=== PATIENT | male | born 1985 | race Caucasian/White ===

== ENCOUNTER 2023-05-20 08:32 | Emergency (ER) | payer BC, SELFPAY ==
[2023-05-20 08:36] VITALS: BP 123/73; PULSE 83; RESP 18; TEMP 37.1; O2SAT 100
--- NOTE | 2023-05-20 08:53 | ED.GENADUL_ITS ---
Discharge Plan Disposition Patient Disposition: Home Condition: Good Discharge Details Clinical Impression: COVID-19 Primary Care Provider: None,None ED Provider: Prachi Acuña Home Meds and New Rx's Prescriptions: New Paxlovid 300 mg (150 mg x 2)-100 mg tablets,dose pack See Rx Instructions .ROUTE .COMPLEX Qty: 1 0RF Rx Instructions: take TWO 150 mg tablets of nirmatrelvir with ONE 100 mg tablet of ritonavir twice daily for 5 days Discharge Instructions Instructions: Viral Syndrome (ED) Additional Instructions: You can take tylenol and ibuprofen over the counter as needed for fever and body aches. You can alternate every 3 hours for example tylenol at noon, ibuprofen at 3, tylenol at 6, ibuprofen at 9, and so on. Paxlovid has been prescribed due to your history of asthma; follow the directions on the package. Return to the emergency department for new or worsening symptoms including difficulty breathing, chest pain, or if you have any other concerns. Medical Decision Making 38yo with hx of cough-variant asthma presenting for fever and chills. COVID + yesterday, two days of URI symtpoms. Tylenol at home this morning at 0330. Vital signs reassuring, afebrile here, not tachycardiac. Non-toxic appearing on exam with no respiratory distress. Not septic. No symptoms to suggest pulmonary embolism. With two days of symptoms, known viral source, afebrile here with no respiratory distress would not pursue labs/imaging/CXR at this time. Symptomatic treatment here with tylenol, toradol. No history of kidney or liver disease. Given asthma, prescribed Paxlovid and advised symptomatic treatment at home. Discharged home; discharge instructions including return precautions were reviewed with patient who verbalized understanding. All questions were answered and they are in full agreement with the plan. HPI General Mode of arrival: ambulatory . Date/Time Provider Initiated Documentation: 05/20/23 08:40 . Limitations to Documentation: no limitations . Information obtained by: patient . 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 COVID + yesterday, two days of URI symptoms (cough, rhinnorhea). Mild nausea, no vomiting or diarrhea. No chest pain, difficulty breathing, LE edema, or other concerns. Tylenol at home this morning at 0330. Has inhalers at home but has not needed them. He is otherwise in his usual state of health with no rash, chest pain, pleuritic pain, numbness, focal weakness, or other concerns. Related Data Home Medications Medication Instructions Recorded Confirmed nirmatrelvir 300 mg (150 mg See Rx Instructions PO .COMPLEX #1 05/20/23 x2)-ritonavir 100 mg tablet,dose dose pk pack (Paxlovid) Previous Rx's Medication Instructions Recorded nirmatrelvir 300 mg (150 mg See Rx Instructions PO .COMPLEX #1 05/20/23 x2)-ritonavir 100 mg tablet,dose dose pk pack (Paxlovid) Allergies Allergy/AdvReac Type Severity Reaction Status Date / Time No Known Allergies Allergy Unverified 05/20/23 08:40 General Stated Complaint: RespSymp ANALI: 4 Review of Systems Narrative: see HPI PFSH All Active Problems (Updated 05/20/23 @ 09:02 by Prachi Acuña MD) COVID-19 (Acute) Social History Smoking/Tobacco Use Status: Never Smoking risk assessment performed?: Yes Alcohol Intake: current Drug use: Occasionally Substance use type: marijuana Do you feel safe at home: Yes Do you feel safe in your relationship?: Yes Exam Narrative Exam Narrative: General: Alert, well appearing, well nourished, in no acute distress. Head: Normocephalic, atraumatic Neck: Trachea midline, Neck supple. ENT: MMM. No oropharygeal lesions or exudate. TM's clear. Cardiac: RRR, no murmurs appreciated Resp: No respiratory distress. CTAB. Abd: Soft, non-distended, nontender Extremities: No deformities. No peripheral edema. Neurologic: GCS 15. Moves all extremities freely against gravity Course Vital Signs Vital signs: Vital Signs Temperature 37.1 C 05/20/23 08:36 Pulse 83 05/20/23 08:36 Respiratory Rate 18 05/20/23 08:36 Blood Pressure 123/73 05/20/23 08:36 Pulse Oximetry 100 05/20/23 08:36 Temperature 37.1 C 05/20/23 08:36 Temperature Source Oral 05/20/23 08:36 Pulse 83 05/20/23 08:36 Respiratory Rate 18 05/20/23 08:36 Respiratory Effort Normal 05/20/23 08:39 Blood Pressure 123/73 05/20/23 08:36 Blood Pressure Position Sitting 05/20/23 08:36 Pulse Oximetry 100 05/20/23 08:36 Oxygen Delivery Method Room Air 05/20/23 08:36 Oxygen Flow Rate 0 05/20/23 08:36 Pain Level 4 05/20/23 08:36
[2023-05-20] MEDS: Ketorolac 15 MG/ML VIAL IM (09:06)
[2023-05-20] MEDS: Acetaminophen 325 MG TAB 650 MG PO (09:06)
== END 2023-05-20 09:06 | disposition home or self-care (01) ==
PROVIDERS: Emergency Provider Student in an Organized Health Care Education/Training Program
DX: U07.1 COVID-19 (principal)
CPT/HCPCS: 96372; 99283; 99282; J1885

== ENCOUNTER 2023-06-21 17:25 | Outpatient (REF) | payer BC, SELFPAY ==
[2023-06-21 23:41] LABS: MRSA PCR Negative (Negative)
== END 2023-06-21 17:26 | disposition home or self-care (01) ==
LOC: LBN 17:25
PROVIDERS: Visit Provider Physician Assistant
DX: J34.89 Other specified disorders of nose and nasal sinuses (principal)
CPT/HCPCS: 87641

== ENCOUNTER 2023-11-23 11:58 | Emergency (ER) | payer BC, SELFPAY ==
[2023-11-23 12:03] VITALS: BP 109/74; PULSE 73; RESP 18; O2SAT 100
[2023-11-23 12:08] VITALS: TEMP 36.5
[2023-11-23 12:52] LABS: Bilirubin Negative (Negative); Blood Negative (Negative); Clarity Clear (Clear); Glucose Negative (Negative); Ketones Trace mg/dL (Negative); Leukocyte Esterase Negative (Negative); Nitrite Negative (Negative); Specific Gravity 1.025 (1.005-1.025); Urobilinogen 0.2 mg/dL (Up to 0.2); pH 5.5 (5-8)
[2023-11-23 13:27] LABS: Abs Immature Grans 0.02 10^3/uL (0.0-0.06); Absolute Basophil Count 0.03 10^3/uL (0.0-0.2); Absolute Eosinophil Count 0.01 10^3/uL (0.0-0.7); Absolute Lymphocyte Count 1.12 10^3/uL (1.2-3.4); Absolute Monocyte Count 0.45 10^3/uL (0.1-0.8); Absolute Neutrophil Count 8.34 10^3/uL (1.2-6.7); Basophils % 0.3; Eosinophils % 0.1; HCT 45.6 % (40.0-50.0); HGB 15.1 g/dL (13.5-17.5); Immature Grans % 0.2; Lymphocytes % 11.2; MCH 30.2 pg (27.0-33.0); MCHC 33.1 % (32.0-36.0); MCV 91 fL (80-95); MPV 9.4 fL (8.0-11.0); Monocytes % 4.5; Neutrophils % 83.7; Platelet Count 373 10^3/uL (130-400); RDW 12.5 % (11.8-14.1); RDW-SD 41.4 fL; WBC 9.97 10^3/uL (4.4-10.8)
--- NOTE | 2023-11-23 13:54 | ED.GENADUL_ITS ---
Discharge Plan Disposition Patient Disposition: Home Condition: Stable Discharge Details Clinical Impression: Back pain Primary Care Provider: Unknown,Unknown ED Provider: You Shafer Home Meds and New Rx's Prescriptions: Continued methylprednisolone [Medrol (He)] 4 mg tablets,dose pack See Rx Instructions PO PER PKG DIR Qty: 21 0RF Rx Instructions: PO PER PKG DIR cyclobenzaprine 10 mg tablet 10 mg PO HS PRN (Reason: muscle spasm) Qty: 7 0RF Discharge Instructions Instructions: Back Pain (ED) Additional Instructions: Your urinalysis and laboratory values are reassuring. Your examination is most consistent with musculoskeletal pain. I do recommend that you continue taking your Medrol pack as well as your cyclobenzaprine as directed. I will add on ibuprofen, 800 mg every 8 hours for the next 5-7 days. As we discussed you may also use [id number] lidocaine patches. Gentle stretching as tolerated. Cool and/or warm compresses every 2 hours for 20 minutes. Please watch for new or worsening symptoms and return immediately to the ER. Otherwise I recommend contacting your primary care provider to discuss your ER visit, ongoing symptoms, and need for outpatient reevaluation. Discharge Data Discharge Date/Time-TO BE ENTERED AT DEPARTURE: 11/23/23 14:17 HPI General Mode of arrival: ambulatory . Date/Time Provider Initiated Documentation: 11/23/23 12:20 . Limitations to Documentation: no limitations . Information obtained by: patient . History of Present Illness 38 year old M presents to the emergency department with the chief complaint of Right hip and back pain, described as moderate, with intensity rated at 6. Quality is d escribed as aching, and is localized to the back, right and lower extremity. Patient reports no radiation. Patient started experiencing this day(s) (6) and it has been constant. Immobilization improves symptom(s), Movement worsens symptoms and Other factors that worsen symptoms (Standing upright, straight) . Patient notes denies chest pain, fever/chills, headaches and nausea/vomiting. Patient did receive the following treatments prior to arrival, NSAID (The first day) and other (Steroids, cyclobenzaprine) Related Data Home Medications Medication Instructions Recorded Confirmed cyclobenzaprine 10 mg tablet 10 mg PO HS PRN muscle spasm #7 11/22/23 11/23/23 tabs methylprednisolone 4 mg tablets in See Rx Instructions PO PER PKG DIR 11/22/23 11/23/23 a dose pack (Medrol (He)) #21 dose pk Previous Rx's Medication Instructions Recorded cyclobenzaprine 10 mg tablet 10 mg PO HS PRN muscle spasm #7 11/22/23 tabs methylprednisolone 4 mg tablets in See Rx Instructions PO PER PKG DIR 11/22/23 a dose pack (Medrol (He)) #21 dose pk Allergies Allergy/AdvReac Type Severity Reaction Status Date / Time Penicillins Allergy Hives Verified 11/23/23 12:07 General Stated Complaint: Nk/Back Pain ANALI: 3 Review of Systems Constitutional Constitutional: Denies fever(s) and Denies weakness Cardiovascular Cardiovascular: Denies chest pain and Denies dyspnea Respiratory Respiratory: Denies dyspnea Gastrointestinal Gastrointestinal: Denies abdominal pain, Denies melena, Denies hematochezia, Denies constipation, Denies diarrhea, Denies nausea and Denies vomiting Genitourinary Genitourinary: Denies hematuria and Denies dysuria Musculoskeletal Musculoskeletal: Reports back pain, Denies numbness and Denies tingling Integumentary/Breasts Skin/Breast: Denies rash Neurologic Neurologic: Denies numbness, Denies tingling and Denies weakness Exam Const General: cooperative, healthy appearing, comfortable and no acute distress Orientation: alert and awake [facility] Head: normal to inspection, normocephalic and atraumatic Mouth: moist mucous membranes Eyes Conjunctivae: conjunctivae normal Neck Neck: normal visual inspection, trachea midline and supple Resp Effort & Inspection: normal respiratory effort and able to speak in complete sentences Cardio Rate: regular rate Rhythm: regular rhythm GI Inspection: normal to inspection Palpation: soft, not firm, no guarding, not rigid and nontender Back/Spine/Pelvis Back: no CVA tenderness and back tenderness (Diffuse mild right lumbar) Thoracic/Lumbar Spine: No thoracic spinal tenderness, No lumbar spinal tenderness and straight leg raise positive (Right, left negative) Pelvis: no pain with anterior-posterior compression, no pain with lateral compression and sciatic notch tenderness on the right Skin General skin exam: no rashes or lesions noted Neuro General: patient alert, patient awake, moves all extremities and no focal motor deficits Cognition: normal cognition Speech: speech normal Gait: normal gait Motor: muscle tone normal throughout Sensory Exam: no sensory deficits noted Extrem General: normal to inspection, full ROM and capillary refill normal Other: Right hip exam: Visual inspection without erythema, ecchymosis, swelling, deformity. Patient able to actively flex their hip greater than 90 degrees with mild discomfort. Pt able to demonstrate smooth internal and external rotation. Mild discomfort with internal rotation, no discomfort with external rotation. While seated, able to hold leg in hip flexion against moderate resistance with mild discomfort. Mild pain over the greater trochanter to palpation. No discomfort over the IT band. Sensation is intact to light touch throughout. Straight leg raise positive for eliciting both back discomfort as well as anterior soft tissue discomfort. Denies deep joint discomfort. Psych Appearance: grossly normal Mental Status: mental status grossly normal Course Vital Signs Vital signs: Vital Signs Pulse 73 11/23/23 12:03 Respiratory Rate 18 11/23/23 12:03 Blood Pressure 109/74 11/23/23 12:03 Pulse Oximetry 100 11/23/23 12:03 Temperature 36.5 C 11/23/23 12:08 Temperature Source Oral 11/23/23 12:08 Pulse 73 11/23/23 12:03 Respiratory Rate 18 11/23/23 12:03 Respiratory Effort Normal 11/23/23 12:07 Blood Pressure 109/74 11/23/23 12:03 Blood Pressure Position Sitting 11/23/23 12:03 Pulse Oximetry 100 11/23/23 12:03 Oxygen Delivery Method Room Air 11/23/23 12:03 Oxygen Flow Rate 0 11/23/23 12:03 Pain Level 5 11/23/23 12:54 Lab/Test Results Lab/Test Results: Laboratory Tests Range/Units 11/23/23 11/23/23 12:45 13:17 WBC (4.4-10.8) 10^3/uL 9.97 RBC (4.36-5.78) 10^6/uL 5.00 Hgb (13.5-17.5) g/dL 15.1 Hct (40.0-50.0) % 45.6 MCV (80-95) fL 91 MCH (27.0-33.0) pg 30.2 MCHC (32.0-36.0) % 33.1 RDW (11.8-14.1) % 12.5 Plt Count (130-400) 10^3/uL 373 MPV (8.0-11.0) fL 9.4 Immature Gran % 0.2 Neutrophils % 83.7 Lymphocytes % 11.2 Monocytes % 4.5 Eosinophils % 0.1 Basophils % 0.3 Nucleated RBC % (0.0-0.3) % 0.0 Absolute Neutrophils (1.2-6.7) 10^3/uL 8.34 H Absolute Lymphocytes (1.2-3.4) 10^3/uL 1.12 L Absolute Monocytes (0.1-0.8) 10^3/uL 0.45 Absolute Eosinophils (0.0-0.7) 10^3/uL 0.01 Absolute Basophils (0.0-0.2) 10^3/uL 0.03 Urine Color (Yellow) Yellow Urine Clarity (Clear) Clear Urine pH (5-8) 5.5 Ur Specific [place] (1.005-1.025) 1.025 Urine Protein (Neg-Trace) mg/dL Negative Urine Ketones (Negative) mg/dL Trace H Urine Blood (Negative) Negative Urine Nitrite (Negative) Negative Urine Bilirubin (Negative) Negative Urine Urobilinogen (Up to 0.2) mg/dL 0.2 Ur Leukocyte Esterase (Negative) Negative Urine Glucose (Negative) mg/dL Negative Medical Decision Making This is a 38-year-old gentleman who reports history of diffuse chronic low back pain intermittent in nature, he assumes he has a herniated disc. He states last week he was skiing rather aggressively, did fall a few times, but denies any obvious injury. The following day he developed right lower back and hip pain, worse with movement, especially worse with standing completely upright. He describes almost a fatimah or spasm-like discomfort with standing straight up. He states this feels different than his baseline chronic back discomfort he did take a single dose of NSAIDs early in the week with no significant relief. He was seen at the urgent care yesterday, given a Flexeril that he took at bedtime without significant improvement of symptoms, as well as a Medrol Dosepak. Took his second dose today, not sure if this too was very beneficial. He was also scheduled for a lumbar spine MRI. Clinically he appears well, nontoxic. Neuro, vascular, tendon intact. Examination is most consistent with a musculoskeletal injury. There is no bony point tenderness about his lumbar spine or hip, doubt that plain films would be very beneficial. I do believe having the outpatient MRI scheduled for his lumbar spine is very reasonable given his previous baseline back discomfort. He denies any bowel or bladder incontinence, numbness, tingling, weakness, foot drop, etc. Low suspicion for renal injury, kidney stone, atypical appendicitis, etc. Discussed in length with patient. He does feel more comfortable that this is musculoskeletal in nature and different than his baseline discomfort. He will continue moving forward with the outpatient lumbar spine MRI he was encouraged to add on consistent NSAID therapy as well as continue his Flexeril at bedtime and complete the dose of Medrol Dosepak. We did also discuss adding on topical Lidoderm patches for his discomfort. Will obtain routine screening laboratory values including a CBC, CMP, and urinalysis. Laboratory values reveal a white blood cell count of 9.97. No evidence of anemia. Platelet count of 373. Electrolytes are unremarkable. Creatinine 0.8 with a GFR of 114.74. Urinalysis without evidence of hematuria. Discussed reassuring workup with patient. We discussed the importance of watching for new or evolving symptoms and returning immediately to the ER. Otherwise he will move forward with the plan as stated above. He will also contact his PCP to discuss his ER visit, ongoing symptoms, and need for outpatient reevaluation. Standard discharge and return precautions were provided. Patient understands, is agreeable to this plan, and has no additional questions or concerns upon discharge. This documentation was generated using [employer] dictation system, please disregard any oddities of phrase or misspellings. Medical Records Medical records reviewed: Yes I reviewed the patient's medical records. Quality:SDOH Health Related Social Needs: No Data to Display PFSH All Active Problems (Updated 11/23/23 @ 14:10 by LILIA Lopez) Back pain (Acute) COVID-19 (Acute) Social History Smoking/Tobacco Use Status: Never Smoking risk assessment performed?: Yes Alcohol Intake: current Alcohol Intake frequency: a few times a week Drug use: Occasionally Substance use type: marijuana Do you feel safe at home: Yes Do you feel safe in your relationship?: Yes
[2023-11-23 14:04] LABS: ALT 34 U/L (16-63); AST 23 U/L (15-37); Albumin 4.4 g/dL (3.4-5.0); Alkaline Phosphatase 69 U/L (46-116); Anion Gap 10.7 mmol/L (3-11); BUN 18 mg/dL (7-18); Bilirubin, Total 0.3 mg/dL (0.2-1.0); CO2 27.3 mmol/L (21.0-32.0); CREATININE 0.8 mg/dL (0.70-1.30); Calcium 9.5 mg/dL (8.5-10.1); Chloride 103 mmol/L (98-107); Estimated GFR 114.74 (mL/min/1.73m2); Glucose 110 mg/dL (74-106); Potassium 4.3 mmol/L (3.5-5.1); Sodium 141 mmol/L (136-145); Total Protein 8.4 g/dL (6.4-8.2)
== END 2023-11-23 14:17 | disposition home or self-care (01) ==
PROVIDERS: Emergency Provider Physician Assistant
DX: M54.50 Low back pain, unspecified (principal)
CPT/HCPCS: 80053; 99283; 81003; 85025

== ENCOUNTER 2024-03-18 01:26 | Outpatient (CLI) | payer BC, SELFPAY ==
[2024-03-18 09:39] LABS: ALT 31 U/L (16-63); AST 23 U/L (15-37); Albumin 3.9 g/dL (3.4-5.0); Alkaline Phosphatase 51 U/L (46-116); Anion Gap 7.3 mmol/L (3-11); BUN 19 mg/dL (7-18); Bilirubin, Total 0.38 mg/dL (0.2-1.0); CO2 29.7 mmol/L (21.0-32.0); CREATININE 0.9 mg/dL (0.70-1.30); Calcium 9.1 mg/dL (8.5-10.1); Calculated LDL 115 mg/dL (<100); Chloride 104 mmol/L (98-107); Cholesterol 212 mg/dL (<200); Estimated GFR 110.04 (mL/min/1.73m2); Glucose 95 mg/dL (74-106); HDL Cholesterol 81 mg/dL (40-60); Sodium 141 mmol/L (136-145); TSH (W/Ref FT4) 1.17 uIU/mL (0.36-3.74); Total Protein 7.5 g/dL (6.4-8.2); Triglyceride 83 mg/dL (<150)
== END 2024-03-18 01:27 | disposition home or self-care (01) ==
LOC: LBO 01:27
PROVIDERS: PCP Nurse Practitioner; Referring Provider Nurse Practitioner; Visit Provider Nurse Practitioner
DX: R00.2 Palpitations (principal); Z13.220 Encounter for screening for lipoid disorders
CPT/HCPCS: 36415; 80053; 80061; 84443

== ENCOUNTER 2024-03-20 07:52 | Emergency (ER) | payer BC, SELFPAY ==
[2024-03-20] VITALS (37 sets, daily range): BP systolic 91–124; BP diastolic 59–77; PULSE 40–63; RESP 10–23; TEMP 36.7; O2SAT 94–99
--- NOTE | 2024-03-20 07:45 | RT.EKG_ITS ---
APPROVED REPORT Exam: Resting ECG Reason for Exam: Chest tightness Patient Location: E HR:57 bpm ECG Measurements Heart Rate 57 AXIS MA 173 P 67 QRSd 102 QRS 22 QT 414 T 20 QTc 402 Conclusion Sinus bradycardia...rate< 60 ST elev, probable normal early repol pattern...ST elevation, age<55
--- NOTE | 2024-03-20 08:00 | DI.RAD_ITS ---
Exam(s) XR PORTABLE CHEST AP EXAM: XR PORTABLE CHEST AP CLINICAL HISTORY: Chest tightness TECHNIQUE: 2D digital imaging was performed of the chest. One image was obtained. An AP view was ob tained. COMPARISON: No exams were available for comparison FINDINGS: MEDIASTINUM: Normal. HEART: Normal. PULMONARY VASCULATURE: Normal. LUNGS: Clear. PLEURAL SPACE: No pleural effusion or pneumothorax. BONE:Within normal limits for the patient's age. OTHER FINDINGS:Normal. IMPRESSION: No acute pulmonary findings. DATA REPOSITORY: RADIATION DOSE DELIVERED:
[2024-03-20] MEDS: Aspirin 81 MG CHEW 324 MG CH (08:14)
[2024-03-20 08:20] LABS: Abs Immature Grans 0.02 10^3/uL (0.0-0.06); Absolute Basophil Count 0.05 10^3/uL (0.0-0.2); Absolute Eosinophil Count 0.12 10^3/uL (0.0-0.7); Absolute Lymphocyte Count 1.71 10^3/uL (1.2-3.4); Absolute Monocyte Count 0.52 10^3/uL (0.1-0.8); Absolute Neutrophil Count 4.15 10^3/uL (1.2-6.7); Basophils % 0.8 %; Eosinophils % 1.8 %; HCT 40.4 % (40.0-50.0); HGB 13.4 g/dL (13.5-17.5); Immature Grans % 0.3 %; MCH 30.2 pg (27.0-33.0); MCHC 33.2 % (32.0-36.0); MCV 91 fL (80-95); MPV 9.6 fL (8.0-11.0); Monocytes % 7.9 %; Neutrophils % 63.2 %; Platelet Count 256 10^3/uL (130-400); RBC 4.44 10^6/uL (4.36-5.78); RDW 13.3 % (11.8-14.1); WBC 6.57 10^3/uL (4.4-10.8)
--- NOTE | 2024-03-20 08:22 | ED.GENADUL_ITS ---
Discharge Plan Disposition Patient Disposition: Home Condition: Stable Discharge Details Clinical Impression: Anxiety, Chest pain, Hypomagnesemia Primary Care Provider: Britt Vizcaino ED Provider: Catherine Parnell Home Meds and New Rx's Prescriptions: No Action albuterol sulfate 90 mcg/actuation HFA aerosol inhaler 2 inh inhalation Q4H PRN (Reason: shortness of breath or wheezing) Qty: 8.5 1RF escitalopram oxalate 10 mg tablet 10 mg PO DAILY Discharge Instructions Instructions: Low Magnesium Level, Chest Pain, Adult ED, Anxiety, Adult ED Additional Instructions: At this time your magnesium was slightly low you were given a magnesium supplement here in the department. No evidence for heart attack at this time troponins have been within normal limits. No evidence for pneumonia, no urinary tract infection. This could have been an episode from anxiety or dehydration. Please increase foods with high magnesium levels over the next few days. Please keep your previously scheduled appointment for an ultrasound as discussed with your primary care provider. Follow up with primary care provider in 3-5 days. Return to ED sooner if any worsening chest pain, dizziness, lightheadedness fainting blood in your stool or blood in your vomit or concerns. Referrals: Britt Vizcaino, [employer] [Primary Care Provider] - 1 week Discharge Orders Other Ambulatory Orders: Holter Monitor (Routine) Timeframe: 1 Week Facility: [facility] - Location: Respiratory Therapy Ordered By: Catherine Parnell Discharge Data Discharge Date/Time-TO BE ENTERED AT DEPARTURE: 03/20/24 11:59 HPI General Mode of arrival: ambulatory . Date/Time Provider Initiated Documentation: 03/20/24 07:55 . Limitations to Documentation: no limitations . Information obtained by: patient, RN notes reviewed and old records reviewed . HPI Narrative: 39-year-old male presents to the ER via EMS with a chief complaint of chest tightness, shortness of breath and what sounds like an anxiety episode which has somewhat resolved upon arrival. Patient reports that this morning he woke up feeling like he had to get out of his body was unable to get comfortable lay down on the outside patio and had some tremors in his lower extremities, his significant other called 911 and upon arrival EMS stated he was diaphoretic. No medications given prior to arrival. He did start Lexapro a month ago for anxiety. Upon arrival he states that his symptoms are mostly resolved. He does appear pale. He is very active, no significant lower extremity swelling noted, denies any cough or productive cough no fever chills reports diarrhea 2 days ago no nausea vomiting. He is a former smoker, does endorse marijuana and occasional alcohol, he did drink a beer last night. Related Data Home Medications ?Medication ?Instructions ?Recorded ?Confirmed albuterol sulfate 90 mcg/actuation 2 inh inhalation Q4H PRN shortness 02/04/24 03/20/24 aerosol inhaler of breath or wheezing #8.5 grams escitalopram oxalate 10 mg tablet 10 mg PO DAILY 03/20/24 03/20/24 Previous Rx's ?Medication ?Instructions ?Recorded albuterol sulfate 90 mcg/actuation 2 inh inhalation Q4H PRN shortness 02/04/24 aerosol inhaler of breath or wheezing #8.5 grams Allergies Allergy/AdvReac Type Severity Reaction Status Date / Time Penicillins Allergy Intermediate Hives Verified 03/20/24 07:59 General Stated Complaint: Chest Pain ANALI: 3 Review of Systems All systems reviewed & are unremarkable except as noted in HPI and below Constitutional Constitutional: Reports as per HPI and Reports excessive sweating Cardiovascular Cardiovascular: Reports chest pain, Reports lightheadedness, Reports pa lpitations and Reports dyspnea Respiratory Respiratory: Reports dyspnea Gastrointestinal Gastrointestinal: Reports nausea Psychiatric Psychiatric: Reports as per HPI and Reports anxiety Endocrine Endocrine: Reports excessive sweating and Reports palpitations Exam Narrative Exam Narrative: Constitutional: Alert and oriented x3. Appears stated age. Normal body habitus. Slightly pale. Head: Normocephalic, no trauma. Eyes: Pupils PERRL, Red reflex noted, EOM's intact. Eyelids symmetrical without lesions, discharge, or swelling. ENT: Bilateral TM's WNL, External ear normal to inspection, no mastoid TTP, swelling, or erythema, Nasal turbinates WNL, no nasal discharge. Normal dentition, Posterior pharynx WNL, no exudate. Chest: RRR, Normal S1, S2, distal pulses intact. Resp: Lungs clear to auscultation bilaterally, no wheezes, rales, or rhonchi. Abdomen: Soft, non-distended, Normoactive bowel sounds all 4 quads. Musculoskeletal: Normal gait, Moves all 4 extremities without difficulty. Skin: No suspicious rashes or lesions. Capillary refill less than 2 sec. Neurologic: Cranial nerves II-XII intact. Alert and oriented x 3. Motor: No deficits noted. Sensory: Intact bilaterally all 4 extremities. Hematologic/Lymphatic: No ecchymosis, no lymphadenopathy. Course Vital Signs Vital signs: Vital Signs Temperature 36.7 C 03/20/24 07:52 Pulse 57 L 03/20/24 07:52 Respiratory Rate 20 03/20/24 07:52 Blood Pressure 124/72 03/20/24 07:52 Pulse Oximetry 98 03/20/24 07:52 Temperature 36.7 C 03/20/24 07:52 Temperature Source Oral 03/20/24 07:52 Pulse 57 L 03/20/24 07:52 Respiratory Rate 11 L 03/20/24 07:57 Respiratory Effort Normal 03/20/24 07:57 Respiratory Depth Normal 03/20/24 07:57 Respiratory Pattern Normal 03/20/24 07:57 Blood Pressure 124/72 03/20/24 07:52 Blood Pressure Position Sitting 03/20/24 07:52 Pulse Oximetry 98 03/20/24 07:52 Oxygen Delivery Method Room Air 03/20/24 07:52 Oxygen Flow Rate 0 03/20/24 07:52 Pain Level 0 03/20/24 07:52 Lab/Test Results Lab/Test Results: Laboratory Tests Range/Units 03/20/24 08:06 WBC (4.4-10.8) 10^3/uL 6.57 RBC (4.36-5.78) 10^6/uL 4.44 Hgb (13.5-17.5) g/dL 13.4 L Hct (40.0-50.0) % 40.4 MCV (80-95) fL 91 MCH (27.0-33.0) pg 30.2 MCHC (32.0-36.0) % 33.2 RDW (11.8-14.1) % 13.3 Plt Count (130-400) 10^3/uL 256 MPV (8.0-11.0) fL 9.6 Immature Gran % % 0.3 Neutrophils % % 63.2 Lymphocytes % % 26.0 Monocytes % % 7.9 Eosinophils % % 1.8 Basophils % % 0.8 Nucleated RBC % (0.0-0.3) % 0.0 Absolute Neutrophils (1.2-6.7) 10^3/uL 4.15 Absolute Lymphocytes (1.2-3.4) 10^3/uL 1.71 Absolute Monocytes (0.1-0.8) 10^3/uL 0.52 Absolute Eosinophils (0.0-0.7) 10^3/uL 0.12 Absolute Basophils (0.0-0.2) 10^3/uL 0.05 Medical Decision Making 39-year-old male presents to the ER via EMS with a chief complaint of chest tightness, shortness of breath and what sounds like an anxiety episode which has somewhat resolved upon arrival. Patient reports that this morning he woke up feeling like he had to get out of his body was unable to get comfortable lay down on the outside patio and had some tremors in his lower extremities, his significant other called 911 and upon arrival EMS stated he was diaphoretic. No medications given prior to arrival. He did start Lexapro a month ago for anxiety. Upon arrival he states that his symptoms are mostly resolved. He does appear pale. He is very active, no significant lower extremity swelling noted, denies any cough or productive cough no fever chills reports diarrhea 2 days ago no nausea vomiting. He is a former smoker, does endorse marijuana and occasional alcohol, he did drink a beer last night. EKG was reviewed by Dr. Peters and myself, questionable ST elevation noted most likely early repolarization, sinus bradycardia ER attending, no old EKG available for review. 324 mg chewable baby aspirin given, cardiac workup ordered including serial troponins and chest x-ray. Patient denies any recent long trips in a car plane, he is not tachycardic at this time. Initial troponin within normal limits less than 50, CBC largely within normal notes hemoglobin 13.4 hematocrit 40.4 PT/INR within normal limits CMP largely within normal limits however glucose 110 magnesium 1.6 which is slightly low alk phos 45 which is low. Serial troponin pending, urinalysis pending. Will give magnesium oxide 400 mg p.o. Differential diagnosis includes but limited to anxiety panic attack, CAD, [place], NSTEMI, dehydration, anemia, hypothyroidism, substance use, PE however according to Wells criteria he is very low risk for PE at this time. Repeat troponin within normal limits. Repeat EKG is unchanged. Plan on discharging patient he does have an upcoming appointment with PCP regarding echocardiogram and ultrasound per his report. Outpatient holter monitor ordered as per Patient and family request. Discussed lab results with patient and family they verbalized understanding. Patient discharged into care of family in hemodynamically stable condition. He is chest pain-free at this time. He is less pale discussed low magnesium and home care. this text was generated using [employer] system, please disregard any oddities of phrase or misspellings. Medical Records Medical records reviewed: Yes I reviewed the patient's medical records. Lab Data Lab results reviewed: Yes I reviewed the patient's lab results. Labs: Laboratory Tests Range/Units 03/20/24 03/20/24 03/20/24 08:06 09:58 11:00 WBC (4.4-10.8) 10^3/uL 6.57 RBC (4.36-5.78) 10^6/uL 4.44 Hgb (13.5-17.5) g/dL 13.4 L Hct (40.0-50.0) % 40.4 MCV (80-95) fL 91 MCH (27.0-33.0) pg 30.2 MCHC (32.0-36.0) % 33.2 RDW (11.8-14.1) % 13.3 Plt Count (130-400) 10^3/uL 256 MPV (8.0-11.0) fL 9.6 Immature Gran % % 0.3 Neutrophils % % 63.2 Lymphocytes % % 26.0 Monocytes % % 7.9 Eosinophils % % 1.8 Basophils % % 0.8 Nucleated RBC % (0.0-0.3) % 0.0 Absolute Neutrophils (1.2-6.7) 10^3/uL 4.15 Absolute Lymphocytes (1.2-3.4) 10^3/uL 1.71 Absolute Monocytes (0.1-0.8) 10^3/uL 0.52 Absolute Eosinophils (0.0-0.7) 10^3/uL 0.12 Absolute Basophils (0.0-0.2) 10^3/uL 0.05 PT (9.1-11.1) sec 10.2 INR (0.9-1.1) 1.0 Sodium (136-145) mmol/L 139 Potassium (3.5-5.1) mmol/L 3.7 Chloride (98-107) mmol/L 103 Carbon Dioxide (21.0-32.0) mmol/L 27.1 Anion Gap (3-11) mmol/L 8.9 BUN (7-18) mg/dL 18 Creatinine (0.70-1.30) mg/dL 0.8 Est GFR (CKD-EPI 2020) (mL/min/1.73m2) 114.02 Glucose (74-106) mg/dL 110 H Calcium (8.5-10.1) mg/dL 8.9 Magnesium (1.8-2.4) mg/dL 1.6 L Total Bilirubin (0.2-1.0) mg/dL 0.32 AST (15-37) U/L 23 ALT (16-63) U/L 31 Alkaline Phosphatase (46-116) U/L 45 L Troponin I (< or =60) ng/L < 50 < 50 Total Protein (6.4-8.2) g/dL 7.1 Albumin (3.4-5.0) g/dL 3.7 Urine Color (Yellow) Yellow Urine Clarity (Clear) Clear Urine pH (5-8) 5.0 Ur Specific [place] (1.005-1.025) <= 1.005 Urine Protein (Neg-Trace) mg/dL Negative Urine Ketones (Negative) mg/dL Negative Urine Blood (Negative) Negative Urine Nitrite (Negative) Negative Urine Bilirubin (Negative) Negative Urine Urobilinogen (Up to 0.2) mg/dL 0.2 Ur Leukocyte Esterase (Negative) Negative Urine Glucose (Negative) mg/dL Negative Urine Opiates Screen (Negative) Negative Urine Methadone Screen (Negative) Negative Ur Barbiturates Screen (Negative) Negative Ur Tricyclics Screen (Negative) Negative Ur Amphetamines Screen (Negative) Negative U Benzodiazepines Scrn (Negative) Negative Urine Cocaine Screen (Negative) Negative Ur THC Screen (Negative) Positive A Quality:SDOH Health Related Social Needs: No Data to Display PFSH All Active Problems (Updated 03/20/24 @ 11:52 by Catherine Parnell NP) Hypomagnesemia (Acute) Chest pain (Acute) Anxiety (Chronic) COVID-19 (Acute) Surgical History (Updated 01/04/24 @ 16:26 by Rosemarie Simmons) History of ear, nose, and throat (ENT) surgery Nose 2018 [facility] Family History (Updated 01/04/24 @ 16:30 by Rosemarie Simmons) Mother Anxiety Maternal Grandmother Breast cancer Paternal Grandmother Breast cancer Maternal Uncle Cancer of kidney Lung cancer Paternal Grandfather Diabetes Social History (Updated 03/03/24 @ 10:29 by Vivien Osborn LPN) Smoking/Tobacco Use Status: Former Tobacco Use tobacco type: cigarettes Tobacco: How many years used: 7 Smoking risk assessment performed?: Yes Alcohol Intake: current Alcohol Intake frequency: holidays/special occasions only Drug use: Daily Substance use type: marijuana Adopted: No Caregiver/Support person: No Foster care: No Household members: spouse and children Housing: house Number of Children: 1 Communication Needs: None Education Level: master's degree Do you need help understanding health information?: Never 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 Pets and animals: Yes Pets and animals: cat(s) and dog(s) Sexually active: Yes Do you think of yourself as: straight/heterosexual Current gender identity: male What is your relationship status?: How often do you talk on the phone with friends or family?: twice per week How often do you get together with friends or relatives?: twice per week Do you belong to any clubs or organized social groups?: no Panel score (0-1 are the most socially isolated patients): 2 What type of physical activity do you participate in: bicycling, weight lifting and additional Details: Ski, Hike Duration: 45-60 minutes/day Frequency: 3-4 times per week Tiffany/Hoahaoism: None Special tiffany needs: No Seatbelt use: always Helmet use: Yes Drive intox or ride w/intox emergency detail driver: No Do you feel safe at home: Yes Do you feel safe in your relationship?: Yes PAWSS Have you Been Recently Intoxicated or Drunk Within the Last 30 days?: No Have you Ever Experienced Previous Episodes of Alcohol Withdrawal?: No Have you ever Experienced Withdrawal Seizures?: No Have you ever Experienced Delirium Tremens(DT)s?: No Have you ever undergone Alcohol Rehabilitation Treatment (i.e, inpt ot outpatient treatment programs)?: No Have you ever Experienced Blackouts?: No Have you ever Combined Alcohol with other Downers within the last 90 days?: No Have you ever Combined Alcohol with any other Substance of Abuse during the last 90 days?: No Result: 0
[2024-03-20 08:31] LABS: Prothrombin Time 10.2 sec (9.1-11.1)
[2024-03-20 08:41] LABS: ALT 31 U/L (16-63); AST 23 U/L (15-37); Albumin 3.7 g/dL (3.4-5.0); Alkaline Phosphatase 45 U/L (46-116); Anion Gap 8.9 mmol/L (3-11); BUN 18 mg/dL (7-18); Bilirubin, Total 0.32 mg/dL (0.2-1.0); CO2 27.1 mmol/L (21.0-32.0); CREATININE 0.8 mg/dL (0.70-1.30); Calcium 8.9 mg/dL (8.5-10.1); Chloride 103 mmol/L (98-107); Estimated GFR 114.02 (mL/min/1.73m2); Glucose 110 mg/dL (74-106); Magnesium 1.6 mg/dL (1.8-2.4); Potassium 3.7 mmol/L (3.5-5.1); Sodium 139 mmol/L (136-145); Total Protein 7.1 g/dL (6.4-8.2); Troponin I < 50 ng/L (< or =60)
[2024-03-20] MEDS: Magnesium Oxide 400 MG TAB PO (09:07)
[2024-03-20 10:12] LABS: Bilirubin Negative (Negative); Blood Negative (Negative); Clarity Clear (Clear); Glucose Negative (Negative); Ketones Negative (Negative); Leukocyte Esterase Negative (Negative); Nitrite Negative (Negative); Specific Gravity <= 1.005 (1.005-1.025); Urobilinogen 0.2 mg/dL (Up to 0.2)
[2024-03-20 10:24] LABS: *AMPHETAMINES SCREEN URINE Negative (Negative); *BARBITURATES SCREEN URINE Negative (Negative); *BENZODIAZEPINES SCREEN URINE Negative (Negative); Cannabinoids THC Positive (Negative); Cocaine Screen,Urine Negative (Negative); METHADONE URINE SCREEN Negative (Negative); OPIATES URINE SCREEN Negative (Negative)
--- NOTE | 2024-03-20 10:30 | RT.EKG_ITS ---
APPROVED REPORT Exam: Resting ECG Reason for Exam: Repeat Patient Location: E HR:51 bpm ECG Measurements Heart Rate 51 AXIS VT 165 P 44 QRSd 98 QRS 9 QT 437 T 21 QTc 404 Conclusion Sinus bradycardia...rate< 60 ST elevation, consider anterolateral injury...ST >0.15mV, I aVL V2-V6 no stemi
[2024-03-20 10:31] LABS: Tricyclic Antidepressants Negative (Negative)
[2024-03-20] MEDS: Normal Saline 1,000 ML 1000 ML IV (10:44)
[2024-03-20 11:27] LABS: Troponin I < 50 ng/L (< or =60)
== END 2024-03-20 11:59 | disposition home or self-care (01) ==
PROVIDERS: Emergency Provider Registered Nurse Emergency; PCP Nurse Practitioner
DX: R07.9 Chest pain, unspecified; F41.9 Anxiety disorder, unspecified; E83.42 Hypomagnesemia; R00.1 Bradycardia, unspecified; Z87.891 Personal history of nicotine dependence
CPT/HCPCS: 36415; 80053; 80307; 93005; 99284; 71045; 81003; 83735; 84484; 85025; 85610; 93010; 99283

== ENCOUNTER 2024-03-23 14:13 | Emergency (ER) | payer BC, SELFPAY ==
[2024-03-23 14:14] VITALS: BP 105/66; PULSE 60; RESP 16; TEMP 36.4; O2SAT 98
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
[2024-03-23 14:19] VITALS: BP 105/66; RESP 16; TEMP 36.4; O2SAT 98
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
== END 2024-03-23 16:13 | disposition home or self-care (01) ==
PROVIDERS: Emergency Provider Emergency Medicine; PCP Nurse Practitioner
DX: S00.33XA Contusion of nose, initial encounter (principal); J34.2 Deviated nasal septum; J34.89 Other specified disorders of nose and nasal sinuses; V18.0XXA Pedal cycle driver injured in noncollision transport accident in nontraffic accident, initial encounter
CPT/HCPCS: 99284; 70450; 70486; 72125; 99283

== ENCOUNTER 2024-08-11 23:35 | Emergency (ER) | payer BC, SELFPAY ==
[2024-08-11] VITALS (9 sets, daily range): BP systolic 94–142; BP diastolic 68–83; PULSE 61–88; RESP 13–19; TEMP 37.1; O2SAT 94–99
--- NOTE | 2024-08-11 22:30 | RT.EKG_ITS ---
APPROVED REPORT Exam: Resting ECG Reason for Exam: Weakness Patient Location: E HR:86 bpm ECG Measurements Heart Rate 86 AXIS IA 169 P 57 QRSd 102 QRS 34 QT 382 T 51 QTc 448 Conclusion Sinus rhythm...normal P axis, V-rate 60- 99 Ventricular premature complex...V complex w/ short R-R interval ST elev, probable normal early repol pattern...ST elevation, age<55 I have reviewed and interpreted ECG and agree with software generated interpretation. There are no significant changes compared to prior EKG performed on 03/20/2024 at 10:58.
--- NOTE | 2024-08-11 22:43 | W.ED.GENAD ---
Discharge Plan Disposition Patient Disposition: Home Condition: Good Discharge Details Clinical Impression: Palpitations Primary Care Provider: Britt Vizcaino ED Provider: Freddy Smith Meds and New Rx's Prescriptions: Continued albuterol sulfate 90 mcg/actuation HFA aerosol inhaler 2 inh inhalation Q4H PRN (Reason: shortness of breath or wheezing) Qty: 8.5 1RF Discharge Instructions Instructions: Palpitations ED Additional Instructions: You were seen for recurrent episode of shortness of breath, palpitations, tremors and sweats. Your workup in the ED including exam, EKG, chest x-ray, laboratory studies are reassuring. As we discussed, cannot rule out an arrhythmia as a cause of symptoms. You should follow-up with primary care for consideration of cardiac echo as well as cardiac monitoring as outpatient. Return to ED for any syncope, persistent shortness of breath, chest pain, neurologic change, other concerns. Referrals: Britt Vizcaino, CUSTOMER ORDERS CLERK [Primary Care Provider] - HPI General Mode of arrival: EMS. Date/Time Provider Initiated Documentation: 08/11/24 23:49. Limitations to Documentation: no limitations. Information obtained by: patient, RN notes reviewed and old records reviewed. HPI Narrative: Patient presents to ED with onset of not feeling right, heart racing, shortness of breath, tremors and diaphoresis. Patient reports there was nothing new or different during the day. Consumed the same amount of caffeine he typically does. He ate and drink throughout the day as before. Started to develop a weird sensation in his jaw which he did not really feel was painful just abnormal sensation and a feeling of becoming confused. Subsequently, began developing shortness of breath and heart racing. States his did take his pulse and said it was fast but seem to be regular. He began having tremor and sweats. Continued to feel short of breath and EMS was activated. 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 No issues doing that. Did not have any type of chest pain or pressure tonight. Had something similar to this over the summer. Thought it was possibly related to medication that he was on. Currently states he is taking no medications other than rescue inhaler as needed. He has not used it for at least 3 weeks. Denies any [id number] cold medication use and denies any drugs such as cocaine or methamphetamine. He does use marijuana, this is not new. He has experienced anxiety in the past but never really panic attacks. Symptoms mostly resolved on EMS arrival and he has felt pretty much back to normal. Related Data Home Medications ?Medication ?Instructions ?Recorded ?Confirmed albuterol sulfate 90 mcg/actuation 2 inh inhalation Q4H PRN shortness 02/04/24 08/11/24 aerosol inhaler of breath or wheezing #8.5 grams Previous Rx's ?Medication ?Instructions ?Recorded albuterol sulfate 90 mcg/actuation 2 inh inhalation Q4H PRN shortness 02/04/24 aerosol inhaler of breath or wheezing #8.5 grams Allergies Allergy/AdvReac Type Severity Reaction Status Date / Time Penicillins Allergy Intermediate Hives Verified 08/11/24 23:03 General ANALI: 3 Review of Systems Narrative: Per HPI Exam Narrative Exam Narrative: Const: WDWN male in NAD. VS per triage. HEENT: NC/AT. Normal facial exam. Neck: Supple. Trachea midline. Normal thyroid. Lungs: Normal respiratory effort. Lungs are clear. Cor: RRR without murmur. Good radial pulses. GI: Soft/ND/NT. Neuro: A+O x 3. Normal speech, mentation, gait. Cranial nerves II - XII grossly intact. No gross motor or sensory deficit. Ext: No C/C/E. Medical Decision Making Patient presenting to ED with shortness of breath, palpitations, tremor, diaphoresis but no real complaint of chest pain or pressure, syncope, neurologic change. Had similar type of problem over the summer and was seen here with unremarkable workup. Currently on no medications and has not used his inhaler for over 3 weeks. No change in his caffeine consumption. Vital signs on arrival normal except for mildly elevated blood pressure. EKG obtained shows sinus rhythm with early repolarization findings, no acute changes and no change from previous. Consider possibility of an SVT. Does not seem consistent with ACS. Is low risk for PE and subsequently PERCs out, does not require d-dimer or CTA. It is possible that this is anxiety related. Previous ED visit with no significant lab abnormalities. Will repeat labs including TSH and delta troponin. Chest x-ray ordered. Maintain on monitor for possibility of arrhythmia. Patient's laboratory studies tonight pretty unremarkable. Magnesium just a little low at 1.7. Potassium low normal. Blood count normal. TSH normal. Initial troponin 21. Chest x-ray per my read with no acute cardiopulmonary process. No recurrent symptoms while here. Plan for discharge home to follow-up with primary care presume second troponin with no change. Patient's troponin remains flat. Discussed follow-up with patient and in regards to possible cardiac echo and cardiac monitoring outpatient to rule out source of arrhythmia such as A-fib or SVT. Return precautions provided. Imaging Data Radiologic Study: Attestation: I personally reviewed and interpreted this imaging study as follows: Imaging: X-Ray My impression: Normal CXR Lab Data Lab results reviewed: Yes I reviewed the patient's lab results. Lab results narrative: see MDM ECG Data Attestation: I personally reviewed and interpreted this ECG (s) as follows: Prior ECG tracings: available for review Interpretation: see EKG/MDM FORMERLY [facility], [facility]–1983 All Active Problems (Updated 08/12/24 @ 00:24 by Freddy Smith MD) Palpitations (Acute) Nasal valve collapse (Acute) left-sided Surgical History History of ear, nose, and throat (ENT) surgery Nose [address] [place] [address] Family History Mother Anxiety Maternal Grandmother Breast cancer Paternal Grandmother Breast cancer Maternal Uncle Cancer of kidney Lung cancer Paternal Grandfather Diabetes Social History Smoking/Tobacco Use Status: Former Tobacco Use tobacco type: cigarettes Tobacco: How many years used: 7 Smoking risk assessment performed?: Yes Alcohol Intake: current Alcohol Intake frequency: holidays/special occasions only Drug use: Daily Substance use type: marijuana Adopted: No Caregiver/Support person: No Foster care: No Household members: spouse and children Housing: house Number of Children: 1 Communication Needs: None Education Level: master's degree Do you need help understanding health information?: Never 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 Pets and animals: Yes Pets and animals: cat(s) and dog(s) Sexually active: Yes Do you think of yourself as: straight/heterosexual Current gender identity: male What is your relationship status?: How often do you talk on the phone with friends or family?: twice per week How often do you get together with friends or relatives?: twice per week Do you belong to any clubs or organized social groups?: no Panel score (0-1 are the most socially isolated patients): 2 What type of physical activity do you participate in: bicycling, weight lifting and additional Details: Ski, Hike Duration: 45-60 minutes/day Frequency: 3-4 times per week Tiffany/Congregation: None Special tiffany needs: No Seatbelt use: always Helmet use: Yes Drive intox or ride w/intox transport truck driver: No Do you feel safe at home: Yes Do you feel safe in your relationship?: Yes
--- NOTE | 2024-08-11 22:45 | DI.RAD_ITS ---
Exam(s) XR CHEST 2V PA LATERAL EXAM: XR CHEST 2V PA LATERAL CLINICAL HISTORY: SOB TECHNIQUE: 2D digital imaging was performed of the chest. Two images were obtained. PA and lateral views were obtained. COMPARISON: CR XR PORTABLE CHEST AP from 03/20/2024 FINDINGS: MEDIASTINUM: Normal. HEART: Normal. PULMONARY VASCULATURE: Normal. LUNGS: Clear. PLEURAL SPACE: No pleural effusion or pneumothorax. BONE:Within normal limits for the patient's age. OTHER FINDINGS:Normal. IMPRESSION: No acute pulmonary findings. DATA REPOSITORY: RADIATION DOSE DELIVERED:
[2024-08-11 23:14] LABS: HCT 42.3 % (40.0-50.0); HGB 14.2 g/dL (13.5-17.5); MCH 29.7 pg (27.0-33.0); MCHC 33.6 % (32.0-36.0); MCV 89 fL (80-95); MPV 9.1 fL (8.0-11.0); Platelet Count 307 10^3/uL (130-400); RBC 4.78 10^6/uL (4.36-5.78); RDW 12.3 % (11.8-14.1); RDW-SD 40.1 fL; WBC 6.58 10^3/uL (4.4-10.8)
[2024-08-11 23:38] LABS: ALT 32 U/L (16-63); AST 31 U/L (15-37); Albumin 4.2 g/dL (3.4-5.0); Alkaline Phosphatase 60 U/L (46-116); Anion Gap 10.6 mmol/L (3-11); BUN 25 mg/dL (7-18); Bilirubin, Total 0.21 mg/dL (0.2-1.0); CO2 28.4 mmol/L (21.0-32.0); CREATININE 1.2 mg/dL (0.70-1.30); Calcium 9.5 mg/dL (8.5-10.1); Chloride 100 mmol/L (98-107); Estimated GFR 77.92 (mL/min/1.73m2); Glucose 113 mg/dL (74-106); Magnesium 1.7 mg/dL (1.8-2.4); Potassium 3.5 mmol/L (3.5-5.1); Sodium 139 mmol/L (136-145); TSH (W/Ref FT4) 3.15 uIU/mL (0.36-3.74); Total Protein 7.9 g/dL (6.4-8.2); Troponin I 21 ng/L (<or=76)
[2024-08-12] VITALS: BP 104/69; PULSE 62; PULSE 66; RESP 20; O2SAT 98
[2024-08-12 00:01] VITALS: PULSE 65; RESP 13; O2SAT 96
[2024-08-12 00:10] VITALS: PULSE 63; RESP 15; O2SAT 97
[2024-08-12 00:20] VITALS: PULSE 64; RESP 19; O2SAT 96
[2024-08-12 00:21] LABS: Troponin I 18 ng/L (<or=76)
[2024-08-12 00:36] VITALS: BP 116/55; PULSE 62; RESP 14; O2SAT 96
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
== END 2024-08-12 00:36 | disposition home or self-care (01) ==
PROVIDERS: Emergency Provider Emergency Medicine; PCP Nurse Practitioner
DX: R00.2 Palpitations (principal); R06.02 Shortness of breath; Z87.891 Personal history of nicotine dependence
CPT/HCPCS: 36415; 80053; 85027; 93005; 99285; 71046; 83735; 84443; 84484; 93010; 99284

== ENCOUNTER 2024-08-25 03:18 | Outpatient (CLI) | payer BC, SELFPAY ==
[2024-08-27 09:57] LABS: Lyme Ab w Rflx to Lyme Confirm Negative (Negative)
[2024-08-28 23:18] LABS: Anaplasma phagocytophilum Negative (Negative); B. miyamotoi PCR Negative (Negative); Babesia divergens/MO-1 Negative (Negative); Babesia duncani Negative (Negative); Babesia microti Negative (Negative); Ehrlichia chaffeensis Negative (Negative); Ehrlichia ewingii/canis Negative (Negative); Ehrlichia muris eauclairensis Negative (Negative)
== END 2024-08-25 03:19 | disposition home or self-care (01) ==
LOC: LBO 03:18
PROVIDERS: PCP Nurse Practitioner; Referring Provider Nurse Practitioner; Visit Provider Nurse Practitioner
DX: R00.2 Palpitations (principal); R06.02 Shortness of breath
CPT/HCPCS: 36415; 87798; 86618

== ENCOUNTER 2024-08-28 15:12 | Outpatient (RCR) | payer BC, SELFPAY ==
--- NOTE | 2024-09-02 13:58 | W.HOLTRPT ---
Date of service: 09/02/24 Time of Service: 13:58 Holter Monitor Report Referring Provider:: Britt Vizcaino Indications:: Palpitations Holter Monitor Note: This is a 48-hour Holter monitor. Rhythm throughout was sinus. Average heart rate was 75. Minimum was 34, maximum 179 There were no ventricular dysrhythmias A total of 8 premature atrial contractions were seen. There was no atrial fibrillation, no high-grade AV block, no pauses greater than 3 seconds Isolated symptoms correlated to sinus rhythm
== END 2024-09-26 23:59 | disposition home or self-care (01) ==
LOC: CARDOPNVT 15:12
PROVIDERS: PCP Nurse Practitioner; Visit Provider Internal Medicine Cardiovascular Disease
DX: R00.2 Palpitations (principal); I49.1 Atrial premature depolarization
CPT/HCPCS: 93225; 93226

== ENCOUNTER 2024-09-05 00:32 | Outpatient (CLI) | payer BC, SELFPAY ==
--- NOTE | 2024-09-05 12:30 | DI.US_ITS ---
APPROVED REPORT EXAM: Comprehensive 2D, Doppler, and color-flow Echocardiogram Patient Location: Out-Patient Documentation Coordinator: Mandeep Martinez RDCS (AE) Indications: SOB, palpitations Conclusion Normal left ventricular wall thickness and chamber size. Ejection fraction is 60 to 65%. Wall motio n is normal Normal right ventricular size and function Both atria are normal in size There are no structural valvular abnormalities Trace mitral and tricuspid regurgitation Wall motion Left Ventricle The left ventricle is normal size. Left ventricular systolic function is normal. The left ventricular ejection fraction is within the normal range. There is normal left ventricular wall thickness. There is normal LV segmental wall motion. The left ventricular diastolic function is normal. There is no v entricular septal defect visualized. LVEF is 63%. Right Ventricle The right ventricle is normal size. The right ventricular systolic function is normal. Atria The left atrium size is normal. The right atrium size is normal. The interatrial septum is intact wit h no evidence for an atrial septal defect. Aortic Valve The aortic valve is normal in structure. Aortic valve is trileaflet. There is no aortic valvular sten osis. No aortic regurgitation is present. Mitral Valve The mitral valve is normal in structure. No evidence of mitral valve stenosis. Trace mitral regurgita tion. Tricuspid Valve The tricuspid valve is normal in structure. There is no tricuspid valve stenosis. Trace tricuspid reg urgitation Pulmonic Valve The pulmonary valve is normal in structure. There is no pulmonic valvular stenosis. There is no pulmo zulay valvular regurgitation. Great Vessels The aortic root is normal in size. The ascending aorta is normal in size. Aortic arch is normal in ca liber. IVC is normal in size and collapses >50% with inspiration. Pericardium There is no pericardial effusion. 2D Dimensions IVSD d PLAX 0.77 cm M: 0.6-1.2 Ao Root d 2.98 cm M: 3.1 - 3.7 LVPW d PLAX 0.83 cm M: 0.6 - 1.2 Ao Asc Diam d 2.81 cm M: 2.6 - 3.4 LVID d PLAX 4.86 cm M: 4.2 - 5.8 LVDs 3.19 cm M: 2.5 - 4.0 LV EF Teichholz 63.3 % FS 34.40 % LV EDV (Teich) 110.9 mL LV ESV (Teich) 40.7 mL Stroke Vol Index (Teich) 39.44 M-Mode TAPSE 2.37 cm (M/F) >1.7 Auto EF LV EDV A4C 142.3 mL LV EDV A2C 145.1 mL LV EDV BP 144.2 mL LV ESV A4C 52.0 mL LV ESV A2C 53.1 mL LV ESV BP 53.7 mL LVEF(%) A4C 63.5 % LVEF(%) A2C 63.4 % LVEF(%) BP 62.7 % LV SV A4C 90.3 ml LV SV A2C 92.0 ml LV SV BP 90.5 ml LV CO A4C 5.1 L/min LV CO A2C 5.2 L/min LV CO BP 5.1 L/min HR A4C 56.34 BPM HR A2C 56.25 BPM LV EDV Index (BP) LA Volume LA Length A4C 4.1 cm LA Length A2C 4.3 cm LA Area A4C s 12.73 cm2 LA Area A2C s 13.28 cm2 LA Vol A4C A-L 33.57 mL LA Vol A2C A-L 34.51 mL LA Vol Biplane A-L 35.0 mL LA Vol/BSA A4C A-L LA Vol/BSA A2C A-L LA Vol/BSA BP A-L 19.7 mL/m2 LA Vol A4C MOD 30.1 mL LA Vol A2C MOD 33.0 mL LA Vol BP MOD 30.8 mL RA Volume RA Area A4C 8.3 cm2 RA ESV A4C (A-L) 14.2mL RA Vol/BSA A4C A-L RA Length A4C 4.2 cm RA ESV A4C (MOD) 13.2mL LV Diastology MV E' medial 0.097 (>0.07 m/s) MV E Vmax 0.60 (0.4-1.3 m/s) MV E/E' MED 6.18 (<14) MV A Vmax 0.50 (0.4-1.3 m/s) MV E' lateral 0.138 (>0.1 m/s) E/A Ratio 1.2 MV E/E' LAT 4.34 (<14) MV E' Average 0.118 m/s MV E/E'(average) 5.10 Aortic Valve AoV Vmax 1.12 m/s LVOT Vmax 0.88 m/s AoV Peak Grad 5.1 mmHg LVOT Peak Grad 3.1 mmHg AoV Area (Vmax) 3.22 cm2 LVOT VTI 0.195 m AoV VTI 0.244 m LVOT Mean Grad 1.7 mmHg AoV Mean Jesús. 0.74 m/s LVOT SV 80.48 mL AoV Mean Grad 2.6 mmHg LVOT Diam s 2.25 cm AoV Area (VTI) 3.30 cm2 AV Regurg Peak Gr. 5.06 mmHg Velocity Ratio 0.79 Mitral Valve MV DT 156 (160-240 msec) MV Vmax TIPS 0.74 m/s MV Mean Grad 0.8 (<2mmHg) MV VTI 0.281 m Pulmonary Valve PV Vmax 0.90 (0.5-1.5 m/s) RVOT Vmax 0.78 m/s PV Peak Grad 3.3 mmHg RVOT Peak Gr. 2.5 mmHg PV Mean Jesús 0.58 m/s RVOT VTI 0.170 m PV Mean Grad 1.6 mmHg RVOT Mean Gr. 1.4 mmHg
== END 2024-09-05 00:52 ==
LOC: DI 00:32
PROVIDERS: PCP Nurse Practitioner; Visit Provider Nurse Practitioner
DX: R00.2 Palpitations (principal); R06.02 Shortness of breath
CPT/HCPCS: 93306

== ENCOUNTER 2025-01-11 07:38 | Emergency (ER) | payer BC, SELFPAY ==
[2025-01-11 07:40] VITALS: BP 107/73; PULSE 57; RESP 15; TEMP 36.5; O2SAT 100
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
== END 2025-01-11 08:54 | disposition home or self-care (01) ==
PROVIDERS: Emergency Provider Emergency Medicine Emergency Medical Services; PCP Nurse Practitioner
DX: S16.1XXA Strain of muscle, fascia and tendon at neck level, initial encounter (principal); S40.012A Contusion of left shoulder, initial encounter; Z87.891 Personal history of nicotine dependence; V19.88XA Pedal cyclist (driver) (passenger) injured in other specified transport accidents, initial encounter; Y92.482 Bike path as the place of occurrence of the external cause; Y93.55 Activity, bike riding
CPT/HCPCS: 99283; 71046; 73000; 73030

== ENCOUNTER 2025-08-07 00:37 | Emergency (ER) | payer BC, SELFPAY ==
[2025-08-07 00:42] VITALS: BP 126/80; PULSE 73; RESP 16; TEMP 37.3; O2SAT 99
--- NOTE | 2025-08-07 00:49 | ED.GENADUL_ITS ---
Discharge Plan Disposition Patient Disposition: Home Condition: Good Discharge Details Clinical Impression: Pulsatile tinnitus of right ear Primary Care Provider: Britt Vizcaino ED Provider: Freddy Smith Meds and New Rx's Prescriptions: Continued albuterol sulfate 90 mcg/actuation HFA aerosol inhaler 2 inh inhalation Q4H PRN (Reason: shortness of breath or wheezing) Qty: 8.5 1RF Discharge Instructions Additional Instructions: You were seen for pulsatile sound in the right ear. Your exam and a CTA of brain/neck are reassuring. Please follow up with PCP next week if not improving. Return to ED for severe headache, neurological changes, other concerns. Stand Alone Forms: Portal Information HPI General Mode of arrival: ambulatory . Date/Time Provider Initiated Documentation: 08/07/25 00:41 . Limitations to Documentation: no limitations . Information obtained by: patient and RN notes reviewed . HPI Narrative: Patient presents to the ED with complaint of right ear pulsations/pressure. Does not really have pain. Denies any URI type symptoms. Does feel like there is pressure in that right ear but it is not painful. It sounds like there is a pulsating wooshing present. He has a mild headache. He has not noticed anything neurologic and was able to drive himself here. He denies gait disturbance or any type of spinning sensation. He has never had this previously. It has been present since about 5 PM this afternoon and is quite bothersome. Related Data Home Medications ?Medication ?Instructions ?Recorded ?Confirmed albuterol sulfate 90 mcg/actuation 2 inh inhalation Q4 H PRN shortness 02/04/24 08/07/25 aerosol inhaler of breath or wheezing #8.5 g tiago Previous Rx's ?Medication ?Instructions ?Recorded albuterol sulfate 90 mcg/actuation 2 inh inhalation Q4 H PRN shortness 02/04/24 aerosol inhaler of breath or wheezing #8.5 g tiago Allergies Allergy/AdvReac Type Severity Reaction Status Date / Time Penicillins Allergy Intermediate Hives Verified 08/07/25 00:52 General Stated Complaint: EarProblem ANALI: 4 Exam Narrative Exam Narrative: Const: WDWN male in NAD. VS per triage. HEENT: NC/AT. Normal facial exam. TMs clear. OP clear. Eyes: PERRL and EOMI Neck: Supple. Trachea midline. No adenopathy. No carotid bruit. Lungs: Normal respiratory effort. Lungs are clear. Cor: RRR without murmur. Good radial pulses. Neuro: A+O x 3. Normal speech, mentation, gait. Cranial nerves II - XII grossly intact. No gross motor or sensory deficit. Course Vital Signs Vital signs: Vital Signs Temperature 99.1 F 08/07/25 00:42 Pulse 73 08/07/25 00:42 Respiratory Rate 16 08/07/25 00:42 Blood Pressure 126/80 08/07/25 00:42 Pulse Oximetry 99 08/07/25 00:42 Temperature 99.1 F 08/07/25 00:42 Temperature Source Temporal Artery Scan 08/07/25 00:42 Pulse 73 08/07/25 00:42 Respiratory Rate 16 08/07/25 00:42 Blood Pressure 126/80 08/07/25 00:42 Blood Pressure Position Sitting 08/07/25 00:42 Pulse Oximetry 99 08/07/25 00:42 Oxygen Delivery Method Room Air 08/07/25 00:42 Oxygen Flow Rate 0 08/07/25 00:42 Pain Level 2 08/07/25 00:42 Medical Decision Making Patient presenting to ED with right ear pressure and pulsating tinnitus. Onset was this afternoon. Exam is unremarkable. He is not exhibiting significant URI type symptoms. There is no carotid bruit. There is no vertigo or gait disturbance. May be the onset of viral URI given a low-grade temp here, mild headache but this is not clear-cut. Consider possibility of intracranial artery stenosis or aneurysm. Given the lack of clear-cut URI and normal appearing ear will obtain CTA of brain and neck. Do not feel laboratory studies are necessary. I have discussed my thoughts with patient who is in agreement with imaging. 02:50 - Patient's CTA brain/neck is normal. No evidence of dissection, occlusions, aneurysms. No acute intracranial pathology noted. Patient will be discharged home to follow up with PCP next week if no resolution. Return precautions provided. PFSH All Active Problems (Updated 08/07/25 @ 02:52 by Freddy Smith MD) Pulsatile tinnitus of right ear (Acute) Tendinopathy of left biceps tendon (Acute) Sprain of left sternoclavicular joint (Acute 01/10/25) Juju bullosa (Acute) 09/26/24 Otolarngology Hypertrophy of nasal turbinates (Acute) 09/26/24 Otolaryngology Nasal obstruction (Acute) 09/26/24 Otolaryngology Nasal valve collapse (Acute) left-sided Surgical History History of ear, nose, and throat (ENT) surgery Nose [address] [place] [address] Family History Mother Anxiety Maternal Grandmother Breast cancer Paternal Grandmother Breast cancer Maternal Uncle Cancer of kidney Lung cancer Paternal Grandfather Diabetes Social History Smoking/Tobacco Use Status: Former Tobacco Use tobacco type: cigarettes Tobacco: How many years used: 7 Smoking risk assessment performed?: Yes Alcohol Intake: current Alcohol Intake frequency: holidays/special occasions only Drug use: Daily Substance use type: marijuana Adopted: No Caregiver/Support person: No Foster care: No Household members: spouse and children Housing: house Number of Children: 1 Communication Needs: None Education Level: master's degree Do you need help understanding health information?: Never 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 Pets and animals: Yes Pets and animals: cat(s) and dog(s) Sexually active: Yes Do you think of yourself as: straight/heterosexual Current gender identity: male What is your relationship status?: How often do you talk on the phone with friends or family?: twice per week How often do you get together with friends or relatives?: twice per week Do you belong to any clubs or organized social groups?: no Panel score (0-1 are the most socially isolated patients): 2 What type of physical activity do you participate in: bicycling, weight lifting and additional Details: Ski, Hike Duration: 45-60 minutes/day Frequency: 3-4 times per week Tiffany/Yarsanism: None Special tiffany needs: No Seatbelt use: always Helmet use: Yes Drive intox or ride w/intox set key driver: No Do you feel safe at home: Yes Do you feel safe in your relationship?: Yes
[2025-08-07] MEDS: Normal Saline 500 ML IV (01:20)
[2025-08-07] MEDS: Omnipaque 350 MG/ML 100 ML BTL IJ (01:53)
[2025-08-07] MEDS: Normal Saline - Diluent 50 ML VIAL IJ (01:54)
[2025-08-07] MEDS: Normal Saline Flush 10 ML SYR IVP (01:54)
--- NOTE | 2025-08-07 01:56 | DI.CT_ITS ---
Exam(s) CT BRAIN NECK CTA EXAM: CT BRAIN NECK CTA CLINICAL HISTORY: pulsatile tinnitus in right ear. TECHNIQUE: Imaging Protocol: Axial CT angiography was performed with multi- slice acquisition and multi-planar and MIP reconstructions. CONTRAST MATERIAL: Intravenous: Omnipaque 350 Contrast volume:70 ml COMPARISON: CT CT HEAD CERV SPINE FACIAL WO from 03/23/2024 FINDINGS: CT Head W/O and W contrast: Ventricles and Extra axial spaces: Normal in size and morphology for the patient's age. Hemorrhage: None. Cerebral parenchyma: No evidence of acute infarct or mass. Midline shift: None. Brainstem/Cerebellum: No acute findings.. Calvarium: Normal. Visualized Paranasal sinuses/Mastoids: Clear. Soft Tissues: Unremarkable. Enhancement: Normal. Venous sinuses are patent. CTA Brain W: Internal Carotid Arteries: Right: No aneurysm, occlusion or significant stenosis. Left: No aneurysm, occlusion or significant stenosis. Middle Cerebral Arteries: Right: No aneurysm, occlusion or significant stenosis. Left: No aneurysm, occlusion or significant stenosis. Anterior Cerebral Arteries: Right: No aneurysm, occlusion or significant stenosis. Left: No aneurysm, occlusion or significant stenosis. Posterior cerebral Arteries: Right: No aneurysm, occlusion or significant stenosis. Left: No aneurysm, occlusion or significant stenosis. Vertebral Arteries: Right: No aneurysm, occlusion or significant stenosis. Left: No aneurysm, occlusion or significant stenosis. Basilar Artery: No aneurysm, occlusion or significant stenosis. CTA Neck W: Visualized aorta: Unremarkable. Visualized pulmonary arteries: Unremarkable. Subclavian arteries: Unremarkable. Common Carotid: Right: No dissection, occlusion or significant stenosis. Left: No dissection, occlusion or significant stenosis. External Carotid: Right: No dissection, occlusion or significant stenosis. Left: No dissection, occlusion or significant stenosis. Internal Carotid: Right: No dissection, occlusion or significant stenosis. Left: No dissection, occlusion or significant stenosis. Vertebral Artery: Right: No dissection, occlusion or significant stenosis. Left: No dissection, occlusion or significant stenosis. Lung Apices: No acute findings. Bones: No acute abnormality. Mild degenerative disc changes. Soft Tissues: Normal. IMPRESSION: 1. CTA brain: Normal CTA examination of the [place]. 2. Head CT: No acute abnormality. 3. CTA neck: No evidence of occlusion, significant stenosis or dissection. No atherosclerotic change The preliminary [facility] report was reviewed. RADIATION DOSE DELIVERED: 2,086.02mGy.cm Total DLP DATA REPOSITORY: All CT scans at this facility are submitted to the National Radiology Data Registry (NRDR) Dose Index Registry (DIR) with the [employer] (ACR). RADIATION OPTIMIZATION: All CT scans at this facility use at least one of these dose optimization techniques: automated exposure control; mA and/or kV adjustment per patient size (includes targeted exams where dose is matched to clinical indication); or iterative reconstruction.
--- NOTE | 2025-08-07 02:07 | NUR.NOTE ---
During ED stay patient spoke with mother on personal mobile and MoP requested to speak with this RN as patient's primary RN. MoP expressed concern that pt was staying overnight and would be without service animal (dog). This RN deferred request to Nursing Services Engineer who came down to speak with pt regarding service animal request.
--- NOTE | 2025-08-07 02:33 | DI.[facility]_ITS ---
PROCEDURE INFORMATION: Exam: CTA Head Without And With Contrast, Arteriography Exam date and time: 08/07/2025 1:36 AM Age: 40 years old Clinical indication: Other: Pulsatile tinnitus in right ear TECHNIQUE: Imaging protocol: Computed tomographic angiography of the head without and with contrast. Exam focused on the arteries. 3D rendering (Not supervised by radiologist): MIP and/or 3D reconstructed images were created by the technologist. Radiation optimization: All CT scans at this facility use at least one of these dose optimization techniques: automated exposure control; mA and/or kV adjustment per patient size (includes targeted exams where dose is matched to clinical indication); or iterative reconstruction. Contrast material: [id number]; Contrast volume: 70 ml; Contrast route: INTRAVENOUS (IV); COMPARISON: CT HEAD CERV SPINE FACIAL WO 03/23/2024 3:24 PM FINDINGS: ANTERIOR CIRCULATION: Right internal carotid artery: Intracranial segment is patent with no significant stenosis or occlusion. No aneurysm. Right middle cerebral artery: No occlusion or significant stenosis. No aneurysm. Right anterior cerebral artery: No occlusion or significant stenosis. No aneurysm. Left internal carotid artery: Intracranial segment is patent with no significant stenosis. No aneurysm. Left middle cerebral artery: No occlusion or significant stenosis. No aneurysm. Left anterior cerebral artery: No occlusion or significant stenosis. No aneurysm. POSTERIOR CIRCULATION: Right vertebral artery: No occlusion or significant stenosis. No aneurysm. Left vertebral artery: No occlusion or significant stenosis. No aneurysm. Basilar artery: No occlusion or significant stenosis. No aneurysm. Right posterior cerebral artery: No occlusion or significant stenosis. No aneurysm. Left posterior cerebral artery: No occlusion or significant stenosis. No aneurysm. HEAD: Brain: Normal. No hemorrhage. Unremarkable white matter. No mass effect. Cerebral ventricles: Normal. No ventriculomegaly. Bones: Unremarkable. No acute fracture. Paranasal sinuses: Visualized sinuses are normal. No fluid levels. Mastoid air cells: Visualized mastoids are normal. No mastoid effusion. Soft tissues: Unremarkable. IMPRESSION: 1. No large vessel occlusion. 2. Unremarkable CT head. PROCEDURE INFORMATION: Exam: CTA Neck Without And With Contrast Exam date and time: 08/07/2025 1:36 AM Age: 40 years old Clinical indication: Other: Pulsatile tinnitus in right ear TECHNIQUE: Imaging protocol: Computed tomographic angiography of the neck without and with contrast. Exam focused on the cervical segments of the vasculature. 3D rendering (Not supervised by radiologist): MIP and/or 3D reconstructed images were created by the technologist. Radiation optimization: All CT scans at this facility use at least one of these dose optimization techniques: automated exposure control; mA and/or kV adjustment per patient size (includes targeted exams where dose is matched to clinical indication); or iterative reconstruction. Contrast material: [id number]; Contrast volume: 70 ml; Contrast route: INTRAVENOUS (IV); COMPARISON: CT HEAD CERV SPINE FACIAL WO 03/23/2024 3:24 PM FINDINGS: Right common carotid artery: No stenosis. No dissection or occlusion. Right internal carotid artery: No stenosis of the extracranial segment. No dissection or occlusion. Right external carotid artery: No occlusion or stenosis of the origin. Left common carotid artery: No stenosis. No dissection or occlusion. Left internal carotid artery: No stenosis of the extracranial segment. No dissection or occlusion. Left external carotid artery: No occlusion or stenosis of the origin. Right vertebral artery: No stenosis. No dissection or occlusion. Left vertebral artery: No stenosis. No dissection or occlusion. Soft tissues: Normal. No significant soft tissue swelling. Bones/joints: No acute fracture. IMPRESSION: No stenosis or occlusion. REFERENCES: NASCET CRITERIA. The degree of stenosis in the cervical segment of the internal carotid artery is based on NASCET criteria. Normal is no stenosis. Mild is less than 50% stenosis. Moderate is 50-69% stenosis. Severe is 70% to 99% stenosis. Total occlusion is no detectable patent lumen. Dictated and Authenticated by: Reji Quispe MD. Orderin Luis Hayes MD
[2025-08-07 02:59] VITALS: PULSE 60; RESP 18; O2SAT 98
== END 2025-08-07 03:00 | disposition home or self-care (01) ==
PROVIDERS: Emergency Provider Emergency Medicine; PCP Nurse Practitioner
DX: H93.A1 Pulsatile tinnitus, right ear (principal)
CPT/HCPCS: 99283; 99285; 70496; 70498; J3490